=== PATIENT | female | born 1980 | race Caucasian/White ===

== ENCOUNTER 2017-11-07 08:04 | Emergency (ER) | payer BC ==
[2017-11-07 08:12] VITALS: BP 114/73; BMI 28.8
--- NOTE | 2017-11-07 08:21 | ED.ABDFE ---
HPI - Time seen Time seen: 08:17 - PCP Primary Care Physician: FLORECITA CEDENO. - HPI Comment HPI Comment: NO FEVER. NAUSEATED BUT NO VOMITING. GETTING WORSE. - Complaint Chief Complaint Doctors Comments: RIGHT FLANK PAIN SINCE 05:00 AM TODAY. ALSO DYSURIA. Chief Complaint:: PT C/O WALKING UP THIS AM AROUND 0500 WITH RIGHT FLANK PAIN THAT RADIATES TO HER RIGHT ABD".. PT C/O PROBLEMS PEEINGS AND SOME NAUSEA.. PT DENIES HX OF RENAL STONES ". - Nurses notes reviewed Nurses Notes Review: Yes - Source History Provided: Patient - Mode of arrival Mode of Arrival: Ambulatory - Timing Onset of Chief Complaint: 11/07/17 Came on: Suddenly - Duration Duration: Hours - Location Location: RLQ (RIGHT FLANK PAIN) - Severity Severity: Moderate - Quality Quality: Sharp - Context Onset: Suddenly History of: None - Modifying Worsening Factors: Nothing Improving Factors: Nothing - Associated signs and symptoms Associated Signs and Symptoms: Nausea, Dysuria PMH - PMH Past Medical History: No Past Surgical History: No - Family History History of Family Medical Conditions: No - Social History Does patient currently use any type of tobacco product: No Have you used tobacco products in the last 12 months: No Type of Tobacco Use: None Does any household member use tobacco: No Alcohol Use: None Do you use any recreational Drugs:: No Lives With: Family Lives Where: Home - infectious screening In the last 2 months have you had wt loss of >10#?: NO Have you had fever, night sweats or hemotysis?: No Have you traveled outside the country in the last 6 months?: No Isolation: Standard ROS - Review of Systems Constitutional: No Symptoms Reported Eyes: No Symptoms Reported ENTM: No Symptoms Reported Respiratoy: No Symptoms Reported Cardiovascular: No Symptoms Reported Gastrointestinal/Abdominal: Abdominal Pain, Nausea, Other (RIGHT FLANK PAIN) Genitourinary: No Symptoms Reported Neurological: No Symptoms Reported Musculoskeletal: No Symptoms Reported Integumentary: No Symptoms Reported Hematologic/Lymphatic: No Symptoms Reported Endocrine: No Symptoms Reported All Other Systems: Reviewed and Negative PE - Vital Signs Vitals: Temperature 98.0 F Pulse Rate 53 Respiratory Rate 20 Blood Pressure 114/73 O2 Sat by Pulse Oximetry 99 - General Limitations: No Limitations General Appearance: Alert - Head Head Exam: Normal Inspection - Eyes Eye exam: Normal Appearance - ENT ENT Exam: Normal External Ear Exam - Neck Neck Exam: Normal Inspection - Chest Chest Inspection: Symmetric Chest Wall Rise - Respiratory Respiratory Exam: Normal Lung Sounds Bilat Respiratory Exam: Bilateral Clear to Auscultation - Abdominal Exam Abdominal Exam: Normal Inspection, Normal Bowel Sounds. negative: Tenderness - Rectal Rectal Exam: Deferred - Back Back Exam: (R) CVA Tenderness - Extremeties Extremities Exam: Normal Inspection - External Exam: Female: Deferred : Speculum Exam (Female): Deferred : Bimanual Exam (female): Deferred - Neurologic Neurological Exam: Alert, Oriented X3 - Psychiatric Psychiatric Exam: Normal Affect, Normal Mood - Skin Skin Exam: Normal Color MDM - Differential Diagnosis Differential Diagnosis- Considerations may include:: Bowel Obstruction, Cholcystitis, Cholelethiasis, Urinary tract infection, Urolithiasis Course - Treatment Treatment: SEE ORDERS. - Education/Counseling Education/Counseling: Patient, Family, Education Educated On: Treatment, Diagnosis, Needs for Follow Up ROR - Labs Reviewed Laboratory Results Reviewed?: Yes Result Diagrams: 11/07/17 08:36 11/07/17 08:36 Laboratory: WBC 16.6 X10^3/uL (3.6-10.0) H 11/07/17 08:36 RBC 4.50 X10^6/uL (3.5-5.4) 11/07/17 08:36 Hgb 13.7 g/dL (12.0-16.0) 11/07/17 08:36 Hct 39.8 % (36.0-47.0) 11/07/17 08:36 MCV 88.4 fL (80.0-100.0) 11/07/17 08:36 MCH 30.4 pg (27.0-34.0) 11/07/17 08:36 MCHC 34.4 g/dL (33.0-35.0) 11/07/17 08:36 RDW 13.4 % (11.6-16.5) 11/07/17 08:36 Plt Count 351 X10^3/uL (150.0-450.0) 11/07/17 08:36 MPV 8.6 fL (7.4-11.0) 11/07/17 08:36 Neut % 87.9 % (42.0-75.0) H 11/07/17 08:36 Lymph % 8.4 % (21.0-51.0) L 11/07/17 08:36 [place] % 3.3 % (0.0-13.0) 11/07/17 08:36 Eos % 0.2 % (0.9-2.9) L 11/07/17 08:36 Baso % 0.2 % (0.2-1.0) 11/07/17 08:36 Neut # 14.6 x10^3/uL (2.2-4.8) H 11/07/17 08:36 Lymph # 1.4 X10^3/uL (1.3-2.9) 11/07/17 08:36 [place] # 0.6 x10^3/uL (0.3-0.8) 11/07/17 08:36 Eos # 0.0 x10^3/uL (0.0-0.2) 11/07/17 08:36 Baso # 0.0 X10^3/uL (0.0-0.1) 11/07/17 08:36 Absolute Nucleated RBC 0.1 /100WBC 11/07/17 08:36 Sodium 140 mmol/L (136-145) 11/07/17 08:36 Corrected Sodium 142 mmol/L (136-145) 11/07/17 08:36 Potassium 3.3 mmol/L (3.5-5.1) L 11/07/17 08:36 Chloride 105 mmol/L (98-107) 11/07/17 08:36 Carbon Dioxide 26.0 mmol/L (21-32) 11/07/17 08:36 BUN 11 mg/dL (7-18) 11/07/17 08:36 Creatinine 0.85 mg/dL (0.55-1.02) 11/07/17 08:36 Est GFR (MDRD) Af Amer > 60 (>60) 11/07/17 08:36 Est GFR (MDRD) Non-Af > 60 (>60) 11/07/17 08:36 Glucose 168 mg/dL (65-99) H 11/07/17 08:36 Calcium 8.7 mg/dL (8.5-10.1) 11/07/17 08:36 Corrected Calcium TNP 11/07/17 08:36 Total Bilirubin 0.20 mg/dL (0.2-1.0) 11/07/17 08:36 AST 16 Units/L (15-37) 11/07/17 08:36 ALT 21 Units/L (12-78) 11/07/17 08:36 Alkaline Phosphatase 63 Units/L (46-116) 11/07/17 08:36 Total Protein 7.4 g/dL (6.4-8.2) 11/07/17 08:36 Albumin 3.8 g/dL (3.4-5.0) 11/07/17 08:36 Globulin 3.6 g/dL (2.5-4.5) 11/07/17 08:36 Albumin/Globulin Ratio 1.1 Ratio (1.1-2.1) 11/07/17 08:36 Amylase 44 Units/L (25-115) 11/07/17 08:36 Lipase 89 Units/L (73-393) 11/07/17 08:36 HCG, Qual Negative <10 mIU/mL 11/07/17 08:36 Specimen Type Clean catch urine 11/07/17 09:46 Urine Color [place] (YELLOW) 11/07/17 09:46 Urine Appearance Clear (CLEAR) 11/07/17 09:46 Urine pH 5.0 (5.0 - 8.0) 11/07/17 09:46 Ur Specific [place] 1.030 (1.000-1.030) 11/07/17 09:46 Urine Protein 2+ (NEGATIVE) 11/07/17 09:46 Urine Glucose (UA) 1+ (NEGATIVE) 11/07/17 09:46 Urine Ketones Negative (NEGATIVE) 11/07/17 09:46 Urine Occult Blood 3+ (NEGATIVE) 11/07/17 09:46 Urine Nitrite Positive (NEGATIVE) 11/07/17 09:46 Urine Bilirubin 2+ (NEGATIVE) 11/07/17 09:46 Urine Urobilinogen 2+ (NORMAL) 11/07/17 09:46 Ur Leukocyte Esterase Negative (NEGATIVE) 11/07/17 09:46 Urine RBC Rare /HPF (NEGATIVE) 11/07/17 09:46 Urine WBC Rare /HPF (NEGATIVE) 11/07/17 09:46 Ur Squamous Epith Cells Few /HPF (NEGATIVE) 11/07/17 09:46 Amorphous Sediment 2+ /HPF (NEGATIVE) 11/07/17 09:46 Urine Bacteria Trace /HPF (NEGATIVE) 11/07/17 09:46 Urine Mucus Few /HPF (NEGATIVE) 11/07/17 09:46 Ur Culture Indicated? No/not indicated 11/07/17 09:46 Urinalysis Comment Dip only ordered 11/07/17 08:32 - XRAY XRAY Findings: REPORT DISCUSS WITH PATIENT. - Diagnosis Discharge Problem: Kidney stone, Right flank pain - Discharge Plan Disposition: HOME, SELF-CARE Condition: Stable Prescriptions: Hydrocodone-Acet 5 mg/325 mg [[place] 5/325 mg Tab] 1 tab PO Q6H PRN #15 tab PRN Reason: Pain Ondansetron [Zofran ODT 8 mg] 8 mg PO Q8H PRN #12 tab PRN Reason: Nausea/Vomiting Sulfamethoxazole-Trimethoprim [BACTRIM DS TAB 800/160 MG *] 1 tab PO BID #10 tab Tamsulosin HCl [Flomax] 0.4 mg PO DAILY #30 cap - Follow ups/Referrals Follow ups/Referrals: ENID SPARKS [CONSULTING PHYSICIAN] - 3 days Florecita Cedeno [Primary Care Provider] - 3 days - Instructions Instructions: Kidney Stones, [id number], Urinary Tract Infection, Adult, Easy -to-Read Additional Instructions: RETURN TO ED IF WORSE.
[2017-11-07] MEDS ORDERED: ZOFRAN INJ 4 MG VIAL IM ONE (08:28)
[2017-11-07] MEDS ORDERED: TORADOL 60 MG VIAL IM ONE (08:28)
[2017-11-07] MEDS ORDERED: ZOFRAN INJ 4 MG VIAL ONE (08:32)
[2017-11-07] MEDS ORDERED: TORADOL 60 MG VIAL ONE (08:32)
[2017-11-07 08:46] LABS: BASOPHILS % (AUTO) 0.2 % (0.2-1.0); EOSINOPHILS % (AUTO) 0.2 % (0.9-2.9); HEMATOCRIT 39.8 % (36.0-47.0); HEMOGLOBIN 13.7 g/dL (12.0-16.0); LYMPHOCYTES # (AUTO) 1.4 X10^3/uL (1.3-2.9); LYMPHOCYTES % (AUTO) 8.4 % (21.0-51.0); MEAN CORPUSCULAR HEMOGLOBIN 30.4 pg (27.0-34.0); MEAN CORPUSCULAR HGB CONC 34.4 g/dL (33.0-35.0); MEAN CORPUSCULAR VOLUME 88.4 fL (80.0-100.0); MEAN PLATELET VOLUME 8.6 fL (7.4-11.0); MONOCYTES # (AUTO) 0.6 x10^3/uL (0.3-0.8); MONOCYTES % (AUTO) 3.3 % (0.0-13.0); NEUTROPHILS # (AUTO) 14.6 x10^3/uL (2.2-4.8); NEUTROPHILS % (AUTO) 87.9 % (42.0-75.0); PLATELET COUNT 351 X10^3/uL (150.0-450.0); RED CELL DISTRIBUTION WIDTH 13.4 % (11.6-16.5); WHITE BLOOD COUNT 16.6 X10^3/uL (3.6-10.0)
[2017-11-07 09:00] LABS: ALANINE AMINOTRANSFERASE 21 Units/L (12-78); ALBUMIN 3.8 g/dL (3.4-5.0); ALKALINE PHOSPHATASE 63 Units/L (46-116); AMYLASE 44 Units/L (25-115); ASPARTATE AMINO TRANSFERASE 16 Units/L (15-37); BLOOD UREA NITROGEN 11 mg/dL (7-18); CALCIUM 8.7 mg/dL (8.5-10.1); CHLORIDE 105 mmol/L (98-107); COR NA(FOR HYPERGLY) 142 mmol/L (136-145); CREATININE 0.85 mg/dL (0.55-1.02); LIPASE 89 Units/L (73-393); SODIUM 140 mmol/L (136-145); TOTAL PROTEIN 7.4 g/dL (6.4-8.2); eGFR BLACK RACES > 60 (>60); eGFR NON BLACK RACES > 60 (>60)
[2017-11-07 09:02] LABS: SERUM PREGNANCY TEST, QUAL NEGATIVE <10 mIU/mL
[2017-11-07 09:10] LABS: BILIRUBIN,URINE NEGATIVE (NEGATIVE); BLOOD/HEMOGLOBIN,URINE 3+ (NEGATIVE); GLUCOSE, URINE 1+ (NEGATIVE); KETONES,URINE NEGATIVE (NEGATIVE); LEUKOCYTE ESTERASE ,URINE NEGATIVE (NEGATIVE); NITRITES,URINE POSITIVE (NEGATIVE); PROTEIN,URINE 2+ (NEGATIVE); UROBILINOGEN,URINE NORMAL (NORMAL)
[2017-11-07 09:12] LABS: APPEARANCE,URINE CLEAR (CLEAR); COLOR,URINE YELLOW (YELLOW)
--- NOTE | 2017-11-07 09:13 | CT ---
HISTORY: Right flank pain Study: CT abdomen pelvis without contrast Comparison: None Technique: Axial noncontrast images with coronal and sagittal reformats. Dose reduction procedures we re used with mA/kv adjusted for body size. Findings: The lung bases are clear. The liver, spleen, adrenal glands, and pancreas are within normal limits to the limitations of an unenhanced examination. No opaque stones are visible within the gallbladder. T here is mild right-sided hydroureteronephrosis proximal to a 2 mm calculus located at the right urete rovesical junction. There is a 2 mm nonobstructing right lower pole renal calculus. The left kidney i s unobstructed. There is a 2 mm nonobstructing left lower pole renal calculus present. No intraperito cb or retroperitoneal lymphadenopathy of significance is identified. The appendix is normal. There are no findings suggestive of diverticulitis or colitis. Examination of the pelvis demonstrated no ev idence for pelvic masses, pelvic fluid, or pelvic lymphadenopathy. No lytic or blastic skeletal lesio ns are identified. IMPRESSION: 2 mm mildly obstructing distal right ureteral calculus located at the right ureterovesical junction Bilateral 2 mm nonobstructing lower pole renal calculi Reported By:
[2017-11-07 09:59] LABS: BILIRUBIN,URINE 2+ (NEGATIVE); BLOOD/HEMOGLOBIN,URINE 3+ (NEGATIVE); GLUCOSE, URINE 1+ (NEGATIVE); KETONES,URINE NEGATIVE (NEGATIVE); LEUKOCYTE ESTERASE ,URINE NEGATIVE (NEGATIVE); NITRITES,URINE POSITIVE (NEGATIVE); PROTEIN,URINE 2+ (NEGATIVE); UROBILINOGEN,URINE 2+ (NORMAL)
[2017-11-07] MEDS ORDERED: K-LYTE EFFERVESCENT PO ONE (09:59)
[2017-11-07 10:09] LABS: APPEARANCE,URINE CLEAR (CLEAR)
[2017-11-07 10:10] LABS: COLOR,URINE ORANGE (YELLOW)
[2017-11-07 10:16] LABS: RBC,URINE RARE /HPF (NEGATIVE); SQUAMOUS EPITHELIAL CELL,UR FEW /HPF (NEGATIVE)
[2017-11-07 10:17] LABS: AMORPHOUS SEDIMENT,UR 2+ /HPF (NEGATIVE); BACTERIA,URINE TRACE /HPF (NEGATIVE)
[2017-11-07 10:19] LABS: MUCUS,URINE FEW /HPF (NEGATIVE)
[2017-11-07] MEDS ORDERED: NORCO 7.5/325 MG TAB PO ONE (10:26)
[2017-11-07] MEDS ORDERED: K-LYTE EFFERVESCENT ONE (10:29)
[2017-11-07] MEDS ORDERED: NORCO 7.5/325 MG TAB ONE (10:29)
== END 2017-11-07 10:42 | disposition home or self-care (01) ==
LOC: ER 08:24
DX: N20.0 Calculus of kidney (principal); R10.84 Generalized abdominal pain
CPT/HCPCS: 36415; 74176; 80053; 81001; 81003; 82150; 83690; 84703; 85025; 87086; 96372; 99282; 99283; J1885; J2405